=== PATIENT | male | born 1985 | race Caucasian/White ===

== ENCOUNTER 2022-08-24 06:34 | Emergency (ER) | payer BC, OTHER ==
[2022-08-24] MEDS ORDERED: Sodium Chloride 0.9% 10 ML Syringe FLUSH PRN (06:38)
[2022-08-24] MEDS ORDERED: Ondansetron 4 MG/2 ML SDV IVPUSH ONE (06:38)
[2022-08-24] MEDS ORDERED: Ketorolac 15 MG/ML SDV IVPUSH ONE (06:38)
[2022-08-24 06:56] LABS: HEMATOCRIT 46.1 % (38.4-49.7); HEMOGLOBIN 15.4 g/dL (12.9-16.9); MEAN CORPUSCULAR HEMOGLOBIN 28.7 pg (31.6-35.5); MEAN CORPUSCULAR HGB CONC 33.4 g/dL (31.6-35.5); PLATELET COUNT,PLT 293 K/uL (130-375); RED BLOOD CELL COUNT 5.36 M/uL (4.14-5.76); WHITE BLOOD CELL COUNT,WBC 11.7 K/uL (3.2-11.0)
[2022-08-24 07:10] LABS: ANION GAP 11.3 mmol/L (5.0-14.0); CALCIUM 8.8 mg/dL (8.5-10.1); CREATININE 1.3 mg/dL (0.8-1.3); EST CRCL DRUG DOSING (CG) 75.27 mL/min; POTASSIUM,K 4.5 mmol/L (3.6-5.2)
[2022-08-24 07:15] LABS: APPEARANCE,URINE CLEAR (CLEAR); BILIRUBIN,URINE NEGATIVE (NEGATIVE); COLOR,URINE YELLOW (YELLOW); GLUCOSE,URINE NEGATIVE (NEGATIVE); KETONES,URINE NEGATIVE (NEGATIVE); LEUKOCYTE ESTERASE,URINE NEGATIVE (NEGATIVE); NITRITE,URINE NEGATIVE (NEGATIVE); OCCULT BLOOD,URINE NEGATIVE (NEGATIVE); PROTEIN,URINE NEGATIVE (NEGATIVE); UROBILINOGEN,URINE 0.2 EU/dL (0.2-1.0)
[2022-08-24 07:18] LABS: AMORPHOUS SEDIMENT,URINE NOT SEEN; BACTERIA,URINE RARE; EPITHELIAL CELLS,URINE NOT SEEN; MUCUS,URINE NOT SEEN; RBC,URINE 0-5 (0-5); WBC,URINE 0-5 (0-5)
[2022-08-24] MEDS ORDERED: HYDROmorphone 0.5 MG/0.5 ML Syringe IVPUSH ONE (07:24)
[2022-08-24] MEDS ORDERED: Tamsulosin 0.4 MG Cap.ER PO ONE (07:28)
[2022-08-24 07:33] LABS: LYMPHOCYTES ABSOLUTE MAN 7.72 K/uL (0.8-3.3); LYMPHOCYTES PERCENT MAN 66 % (24-44); MONOCYTES ABSOLUTE MAN 0.23 K/uL (0.20-0.90); MONOCYTES PERCENT MAN 2 % (2-6); NEUTROPHILS ABSOLUTE MAN 3.74 K/uL (1.0-7.6); SEG NEUTROPHILS PERCENT MAN 32 % (36-66)
== END 2022-08-24 08:45 | disposition home or self-care (01) ==
LOC: JP.ED 06:34
DX: N13.2 Hydronephrosis with renal and ureteral calculous obstruction (principal)
CPT/HCPCS: 36415; 74176; 80048; 81001; 85025; 96374; 96375; 99284; A9270; J1170; J1885; J2405; J3490

== ENCOUNTER 2023-12-07 18:49 | Emergency (ER) | payer BC ==
[2023-12-07 20:14] LABS: APPEARANCE,URINE CLEAR (CLEAR); BILIRUBIN,URINE NEGATIVE (NEGATIVE); COLOR,URINE YELLOW (YELLOW); GLUCOSE,URINE NEGATIVE (NEGATIVE); KETONES,URINE NEGATIVE (NEGATIVE); LEUKOCYTE ESTERASE,URINE NEGATIVE (NEGATIVE); NITRITE,URINE NEGATIVE (NEGATIVE); OCCULT BLOOD,URINE TRACE-INTACT (NEGATIVE); PH,URINE 5.5 (5.0-8.0); PROTEIN,URINE NEGATIVE (NEGATIVE); UROBILINOGEN,URINE 0.2 EU/dL (0.2-1.0)
[2023-12-07 20:19] LABS: BACTERIA,URINE RARE; EPITHELIAL CELLS,URINE RARE; MUCUS,URINE NOT SEEN; RBC,URINE 0-5 (0-5); WBC,URINE NOT SEEN (0-5)
[2023-12-07 20:20] LABS: AMORPHOUS SEDIMENT,URINE RARE
[2023-12-07] MEDS: Ketorolac 30 MG/ML SDV IM ONE (20:37)
[2023-12-07] MEDS: Ketorolac 30 MG/ML SDV ONE (20:38)
== END 2023-12-07 22:20 | disposition home or self-care (01) ==
LOC: JP.ED 18:49
DX: N13.2 Hydronephrosis with renal and ureteral calculous obstruction (principal); Z87.891 Personal history of nicotine dependence; Z91.030 Bee allergy status; Z88.8 Allergy status to other drugs, medicaments and biological substances
CPT/HCPCS: 74176; 81001; 96372; 99284; J1885